=== PATIENT | male | born 1995 | race Caucasian/White ===

== ENCOUNTER → 2017-03-09 | Outpatient (REF) | LOC: WSOH 07:33 | DX: Z01.89 Encounter for other specified special examinations (principal) ==

== ENCOUNTER → 2017-03-09 | Outpatient (REF) | LOC: WSOH 09:04 | DX: Z01.89 Encounter for other specified special examinations (principal) ==

== ENCOUNTER → 2017-03-11 | Outpatient (REF) | LOC: WSOH 07:36 | DX: Z01.89 Encounter for other specified special examinations (principal) ==

== ENCOUNTER → 2017-03-11 | Outpatient (REF) | LOC: WSOH 13:23 | DX: Z01.89 Encounter for other specified special examinations (principal) ==

== ENCOUNTER → 2017-05-09 | Outpatient (REF) | LOC: WSOH 04-29 09:36 | DX: Z01.89 Encounter for other specified special examinations (principal) ==